=== PATIENT | female | born 1975 | race Caucasian/White ===

== ENCOUNTER 2020-09-28 14:14 | Outpatient (CLI) | payer OTHER, SELFPAY | END 2020-09-28 14:15 | disposition home or self-care (01) | LOC: ANHCOVIDVC 14:14 | PROVIDERS: PCP Family Medicine | DX: Z23 Encounter for immunization (principal) | CPT/HCPCS: 0001A; 91300 ==

== ENCOUNTER 2020-10-19 14:15 | Outpatient (CLI) | payer OTHER, SELFPAY | END 2020-10-19 14:16 | disposition home or self-care (01) | LOC: ANHCOVIDVC 14:15 | PROVIDERS: PCP Family Medicine | DX: Z23 Encounter for immunization (principal) | CPT/HCPCS: 0002A; 91300 ==

== ENCOUNTER → 2022-11-14 11:42 | Outpatient (CLI) | payer OTHER, SELFPAY ==
--- NOTE | ~2022-11-14 | MM_ITS ---
EXAMINATION: MM screening [facility] BI w raul HISTORY: Screening mammogram, family history of breast cancer in her sister. TECHNIQUE: Craniocaudal and mediolateral oblique 3-D tomosynthesis images were obtained and synthetic 2-D images were generated. CAD analysis was submitted and interpreted. COMPARISON: 08/08/2019, 10/26/2015, 03/19/2011 BREAST PARENCHYMAL COMPOSITION: There are scattered areas of fibroglandular density. FINDINGS: No suspicious mass, calcification, or architectural distortion are identified in either helen ast to suggest malignancy. There has been no suspicious interval change. IMPRESSION: 1. No mammographic evidence of malignancy. 2. Recommend routine screening mammography in one year. BI-RADS Category 1: Negative Reviewed, dictated and finalized at location A.
== END ==
PROVIDERS: PCP Nurse Practitioner Family; Visit Provider Nurse Practitioner Family
DX: Z12.31 Encounter for screening mammogram for malignant neoplasm of breast (principal)
CPT/HCPCS: 77063; 77067

== ENCOUNTER → 2022-12-29 15:26 | Outpatient (CLI) | payer OTHER, SELFPAY ==
--- NOTE | ~2022-12-29 | CT_ITS ---
EXAMINATION: CT abdomen pelvis wo con DATE: 12/29/2022 15:48 INDICATION: Epigastric abdominal pain, left upper quadrant abdominal pain, nausea TECHNIQUE: Computed tomography (CT) of the abdomen and pelvis was performed without intravenous contr ast. Automated exposure control and iterative reconstruction technique were employed. Exam dose: 111 0.45 mGy-cm total exam DLP. COMPARISON: None. FINDINGS: Minimal discoid atelectasis or scarring at the base of the lingula, middle lobe and left lo wer lobe. No infiltrate or consolidation at the lung bases. Normal heart size. No pericardial or pleural effusion. Small sliding hiatal hernia. There is hepatic steatosis with minimal pericholecystic sparing. No hepatic, splenic, pancreatic, and adrenal or renal space-occupying mass lesion is evident on this limited noncontrast examination. No bile duct or pancreatic duct dilatation. No urinary tract calculus or hydroureteronephrosis. The urin joanne bladder is unremarkable. Status post hysterectomy. Normal caliber of the abdominal aorta. No intraperitoneal or retroperitoneal or pelvic mass lesion or adenopathy or ascites. Normal appendix. No bowel obstruction, bowel wall thickening, pneumatosis or intraperitoneal free air . Very small fat-containing umbilical hernia. There is severe degenerative disc disease and slight retrolisthesis at L5-S1. No suspicious osteolyti c or osteoblastic lesions are noted. IMPRESSION: Small sliding hiatal hernia Hepatic steatosis Normal appendix Reviewed, dictated and finalized at Location A. Reviewed, dictated and finalized at location B.
== END ==
PROVIDERS: PCP Nurse Practitioner Family; Visit Provider Nurse Practitioner Family
DX: K76.0 Fatty (change of) liver, not elsewhere classified (principal)
CPT/HCPCS: 74176

== ENCOUNTER 2024-06-08 15:11 | Outpatient (CLI) | payer OTHER, SELFPAY ==
--- NOTE | ~2024-06-08 | MM_ITS ---
EXAMINATION: MM screening [facility] w raul HISTORY: Screening mammogram, family history of breast cancer in her sister. TECHNIQUE: Craniocaudal and mediolateral oblique 3-D tomosynthesis images were obtained and synthetic 2-D images were generated. CAD analysis was submitted and interpreted. COMPARISON: 11/14/2022, 08/08/2019 BREAST PARENCHYMAL COMPOSITION:Not Dense. There are scattered areas of fibroglandular density. FINDINGS: No suspicious mass, calcification, or architectural distortion are identified in either helen ast to suggest malignancy. There has been no suspicious interval change. IMPRESSION: No mammographic evidence of malignancy. Recommend routine screening mammography in one year. BI-RADS Category 1: Negative Reviewed, dictated and finalized at location . VERY AIDE
== END 2024-06-08 15:12 | disposition home or self-care (01) ==
PROVIDERS: PCP Nurse Practitioner Family; Visit Provider Nurse Practitioner Family
DX: Z12.31 Encounter for screening mammogram for malignant neoplasm of breast (principal)
CPT/HCPCS: 77063; 77067

== ENCOUNTER 2024-08-30 08:00 | Outpatient (CLI) | payer OTHER, SELFPAY ==
--- NOTE | ~2024-08-30 | DEXA_ITS ---
Bone Density Report Name: JARROD QUIJANO Age: 49 Sex: Female Ethnicity: White Date of : 1975 Indication: postmenopausal; screening for osteoporosis; Referring Provider: SHARRI RAMIREZ Study: Bone densitometry was performed. Exam Date: August 30, 2024 Accession number: [id number] Bone Density: Region BMD T-score Z-score Classification AP Spine(L1-L4) 1.326 2.5 3.4 Normal Femoral Neck (Left) 1.018 1.5 2.4 Normal Total Hip (Left) 1.274 2.7 3.2 Normal Femoral Neck (Right) 1.017 1.5 2.3 Normal Total Hip (Right) 1.274 2.7 3.2 Normal Total Hip Mean 1.274 2.7 3.2 Normal World Health Organization criteria for BMD impression classify patients as: Normal (T-score at or above -1.0), Osteopenia (T-score between -1.0 and -2.5), or Osteoporosis (T-score at or below -2.5). 10-year Fracture Risk: FRAX not reported because: All T-scores for Spine Total, Hip Total, Femoral Neck at or above -1.0 Clinical Information Provided by Patient: Menopause Age: 47 Impression: The patient has normal bone mass. Discussion: LOW RISK OF FRACTURE; BONE DENSITY IS WELL ABOVE THE MINIMUM DESIRABLE LEVEL AND ABOVE AVERAGE FOR AGE AND SEX AT ALL SKELETAL SITES TESTED. This person's bone density is above expected limits for age and sex. This is rarely clinically significant, but should be pursued if there are significant musculoskeletal complaints. The patient should follow a healthful lifestyle (good nutrition with adequate calcium and vitamin D, and appropriate weight-bearing exercise). Follow-Up: Consider repeating this study in 5 years or sooner if there is some new clinical indication. Reported by: BERENICE on 08/30/2024 8:41:00 AM. Reviewed, dictated and finalized at location A. CHELLY
--- OUTSIDE RECORDS SUMMARY | 2024-08-30 08:04 | XMS_ITS | Referral Summary ---
Author Organization [facility] Address [address] [place] [address] Care Team Providers Care Turn Supervisor Name Role Phone Sushila Bland MELISSA-OPHTHALMIC LENS INSPECTOR Primary Care Provider [phone] Source Comments [facility],non-owned Affiliates and Associated Physician Practices is amultiple site organization consisting of ambulatory clinics and hospital sitesin [place], [place], [place] and [place]. This disclosure is being madepursuant to the Care Everywhere program and may not contain all information available regarding this patient. Last updated 18.[facility] Allergies No known active allergies Medications * Be aware that medications may not be up to date on this document. Alwaysverify current medications with the patient. Medication Sig Dispensed Refills Start Date End Date Status Blood Glucose Monitoring Suppl (OneTouch Verio Reflect) w/Device KIT TEST DAILY 12/18/2022 Act carlos Cholecalciferol 1.25 MG (02563 UT) TAKE 1 CAPSULE BY MOUTH EVERY WEEK DIRECTED Active ubiquinine/vitamin-e (Coenzyme Q10) 200 MG capsule Active OneTouch Verio test strip once daily 12/18/2022 Active losartan (Cozaar) 25 MG tablet 08/18/2023 Active Multiple Vitamins-Minerals (Multi Vitamin/Minerals) TABS Take 1 (one) tablet by mouth once daily Active Other KRILL OIL Active Other COLLAGEN POWDER Active Other OSTEO BI FLEX Active Active Problems No known active problems Social History Tobacco Use Types Packs/Day Years Used Date Smoking Tobacco: Former Cigarettes Tobacco Cessation:Counseling Given: Not Answered Alcohol Use Standard Drinks/Week Comments Yes 0 (1 standard drink = 0.6 oz pur e alcohol) OCCASIONALLY Sex and Gender Information Value Date Recorded Sex Assigned at Not on file Gender Identity Not on file Sexual Orientation Not on file Last Filed Vital Signs Vital Sign Reading Time Taken Comments Blood Pressure 122/80 10/05/2023 3:39 PM CDT Pulse - - Temperature - - Respiratory Rate 18 10/05/2023 3:39 PM CDT Oxygen Saturation - - Inhaled Oxygen Concentration - - Weight 109.8 kg (242 lb) 10/05/2023 3:39 PM CDT Height - - Body Mass Index - - Plan of Treatment Not on file Care Teams Turn Supervisor Relationship Specialty Start Date End Date Sushila Bland APRN-GEOVANNY [address] [place] [id number] PCP - General Nurse Practitioner 10/05/23
--- OUTSIDE RECORDS SUMMARY | 2024-08-30 08:04 | XMS_ITS | Encounter Summary ---
Author Organization [facility] Address [address] [place] [address]. [place] [address] [place] [address] Care Team Providers Care Frameman Name Role Phone Sushila Bland Primary Care Provider [phone] Encounter Details Date Type Department Care Team (Late Contact Info) Description 04/15/2024 [employer] Message Enc [facility] [id number] [place] [address] Sushila Bland FNP [address] [place] [address] Request a refill for Pantoprazole, 20mg Social History Tobacco Use Types Packs/Day Years Used Date Smoking Tobacco: Former Cigarettes 0.3 4 Smokeless Tobacco: Never Alcohol Use Standard Drinks/Week Comments Yes 0 (1 standard drink = 0.6 oz pur e alcohol) 1-2 times a month PHQ-2 Answer Date Recorded Patient Health Questionnaire-2 Score 0 08/07/2023 Comments No Sex and Gender Information Value Date Recorded Sex Assigned at Female 08/15/2024 9:06 AM POST EXCHANGE MANAGER Legal Sex Female 8:19 AM POST EXCHANGE MANAGER Gender Identity Female 08/15/2024 9:06 AM POST EXCHANGE MANAGER Sexual Orientation Not on file documented as of this encounter Plan of Treatment Upcoming Encounters Date Type Department Care Team (Late Contact Info) Description 10/31/2024 1:40 PM CDT Office Visit [facility] - [address] [place] [address] Sushila Bland FNP [address] [place] [address] Mainor Araujo PA-C [address] [facility] [place] [address] documented as of this encounter Visit Diagnoses Not on filedocumented in this encounter Additional Health Concerns Assessment Noted Time PHQ-9 Depression Total Score: 1 08/07/19 24 9:43 AM POST EXCHANGE MANAGER documented as of this encounter Care Teams Frameman Relationship Specialty Start Date End Date Sushila Bland FNP [address] [place] [address] PCP - General Nurse Practitioner Family 08/07/22 documented as of this encounter
--- OUTSIDE RECORDS SUMMARY | 2024-08-30 08:04 | XMS_ITS | Data Portability ---
Author Organization [facility] Address [address] [place] [address] Assessment No assessment recorded. Plan of Treatment Reminders Order Date Submit Date Provider Last Modified By Organization Details Last Modified Time Details Appointments None recorded. Lab PPD (purified protein derivative) , skin test 2020 021 LAUREN In-Office Order, Internal Use Only DO Not Attach Compendium DO Not Attach Compendium, Do Not Delete/merge, [id number] 16:39:14 estradiol, serum 2021 022 LAUREN [facility], [address], [address], [place], [address], 08:21:20 lh + FSH, serum 2021 LAUREN [facility], 2022 Kar[address], [address], [place], [address], 08:21:18 vitamin D, 25-hydroxy, total, serum 2021 LAUREN [facility], 2022 [address], [address], [place], [address], 2 08:21:21 HbA1c (hemoglobin A1c), blood 2021 [place] [facility], 20[facility] Kar[address] Wagner, [address], [place], [address], 08:21:19 BMP, serum or plasma 2021 022 LAR[facility], 20[address], [address], [place], [address], 08:21:16 lipid panel, serum 2021 [place] [facility], 2022 Kar[address], [address], [place], [address], 08:21:17 AST/SGOT (aspartate aminotransf erase), serum or plasma 2021 [place] [facility], 20[address], [place], [address], 08:21:22 Referral None recorded. Procedures None recorded. Surgeries None recorded. Imaging None recorded. Medication Orders methylpredn isolone 4 mg tablets in a dose pack 2021 [address] [id number], [address], [place], [place], [id number], 08:38:03 Patient TargetsNo targets recorded. Patient Instructions Encounter Date Encounter Id Patient Instructions Last Modified By Organization Details Last Modified Time 12/09/2021 [id number] learning about menopause Not available 12/09/2021 13:42:54 learning about high blood pressure Not available 12/09/2021 13:42:53 body mass index: care instructions Not available 12/09/2021 13:42:53 learning about healthy weight Not available 12/09/2021 13:42:53 Reason for Referral None Reported. Results Created Date Observation Date Name Description Value Unit Range Abnormal Flag Note LastModifiedBy Organization Detail LastModifiedTime 02/05/2002/05/2021 CBC WITH DIFFE RENTI AL/PL ATELE T WBC 5.7 x10e3 /uL 3.4-10 .8 Not Available [facility] ([facility]) [address], [place], [address], 02/05/2021 06:11:44 02/05/20 21 02/05/2021 CBC WITH DIFFE RENTI AL/PL ATELE T RBC 4.58 x10e6 /uL 3.77-5 .28 Not Available [facility] ([facility]) [address] [place], [address], 02/05/2021 06:11:44 02/05/20 21 02/05/2021 CBC WITH DIFFE RENTI AL/PL ATELE T hemoglobin 14.8 g/dL 11.1-1 5.9 Not Available [facility] ([facility]) [address] [place], [address], 02/05/2021 06:11:44 02/05/2002/05/2021 CBC WITH DIFFE RENTI AL/PL ATELE T hematocrit 43.3 % 34.0-4 6.6 Not Available [facility] ([facility]) [address] [place], [address], 02/05/2021 06:11:44 02/05/2002/05/2021 CBC WITH DIFFE RENTI AL/PL ATELE T MCV 95 fL 79-97 Not Available [facility] ([facility]) [address] [place], [address], 02/05/2021 06:11:44 02/05/2002/05/2021 CBC WITH DIFFE RENTI AL/PL ATELE T MCH 32.3 pg 26.6-3 3.0 Not Available [facility] ([facility]) [address] [place], [address], 02/05/2021 06:11:44 02/05/2002/05/2021 CBC WITH DIFFE RENTI AL/PL ATELE T MCHC 34.2 g/dL 31.5-3 5.7 Not Available [facility] ([facility]) [address] [place], [address], 02/05/2021 06:11:44 02/05/20 21 02/05/2021 CBC WITH DIFFE RENTI AL/PL ATELE T RDW 12.6 % 11.7-1 5.4 Not Available [facility] ([facility]) [address] [facility] [address], [place], [address], 02/05/2021 06:11:44 02/05/20 21 02/05/2021 CBC WITH DIFFE RENTI AL/PL ATELE T platelets 290 x10e3 /uL 150-45 0 Not Available [facility] ([facility]) [address] [facility] [address], [place], [address], 02/05/2021 06:11:44 02/05/20 21 02/05/2021 CBC WITH DIFFE RENTI AL/PL ATELE T neutrophils 60 % not estab. Not Available [facility] ([facility]) [address] [facility] [address], [place], [address], 02/05/2021 06:11:44 02/05/20 21 02/05/2021 CBC WITH DIFFE RENTI AL/PL ATELE T lymphs 32 % not estab. Not Available [facility] ([facility]) [address] [address], [place], [address], 02/05/2021 06:11:44 02/05/20 21 02/05/2021 CBC WITH DIFFE RENTI AL/PL ATELE T monocytes 7 % not estab. Not Available [facility] ([facility]) [address] [facility] [address] [facility], [place], [address], 02/05/2021 06:11:44 02/05/20 21 02/05/2021 CBC WITH DIFFE RENTI AL/PL ATELE T eos 1 % not estab. Not Available [facility] ([facility]) [address] [facility] [address] [facility], [place], [address], 02/05/2021 06:11:44 02/05/20 21 02/05/2021 CBC WITH DIFFE RENTI AL/PL ATELE T basos 0 % not estab. Not Available [facility] ([facility]) [address] [facility] [address] [facility], [place], [address], 02/05/2021 06:11:44 02/05/20 21 02/05/2021 CBC WITH DIFFE RENTI AL/PL ATELE T immature cells PLANT TECH Not Available [facility] ([facility]) [address] [facility] [address] [facility], [place], [address], 02/05/2021 06:11:44 02/05/20 21 02/05/2021 CBC WITH DIFFE RENTI AL/PL ATELE T neutrophils (absolute) 3.4 x10e3 /uL 1.4-7. 0 Not Available [facility] ([facility]) [address] [facility] [address], [place], [address], 02/05/2021 06:11:44 02/05/20 21 02/05/2021 CBC WITH DIFFE RENTI AL/PL ATELE T lymphs (absolute) 1.8 x10e3 /uL 0.7-3. 1 Not Available [facility] ([facility]) [address] [place], [address], 02/05/2021 06:11:44 02/05/20 21 02/05/2021 CBC WITH DIFFE RENTI AL/PL ATELE T monocytes(ab solute) 0.4 x10e3 /uL 0.1-0. 9 Not Available [facility] ([facility]) [address] [place], [address], 02/05/2021 06:11:44 02/05/20 21 02/05/2021 CBC WITH DIFFE RENTI AL/PL ATELE T eos (absolute) 0.1 x10e3 /uL 0.0-0. 4 Not Available [facility] ([facility]) [address] [facility] [address] [facility], [place], [address], 02/05/2021 06:11:44 02/05/20 21 02/05/2021 CBC WITH DIFFE RENTI AL/PL ATELE T baso (absolute) 0.0 x10e3 /uL 0.0-0. 2 Not Available [facility] ([facility]) [address] [facility] [address] [facility], [place], [address], 02/05/2021 06:11:44 02/05/20 21 02/05/2021 CBC WITH DIFFE RENTI AL/PL ATELE T immature granulocytes 0 % not estab. Not Available [facility] ([facility]) [address] [facility] [address] [facility], [place], [address], 02/05/2021 06:11:44 02/05/20 21 02/05/2021 CBC WITH DIFFE RENTI AL/PL ATELE T immature grans (abs) 0.0 x10e3 /uL 0.0-0. 1 Not Available [facility] ([facility]) [address] [facility] [address] [facility], [place], [address], 02/05/2021 06:11:44 02/05/20 21 02/05/2021 CBC WITH DIFFE RENTI AL/PL ATELE T NRBC PLANT TECH Not Available [facility] ([facility]) [address] [facility] [address] [facility], [place], [address], 02/05/2021 06:11:44 02/05/20 21 02/05/2021 CBC WITH DIFFE RENTI AL/PL ATELE T hematology comments: PLANT TECH Not Available [facility] ([facility]) [address] [facility] [address] [facility], [place], [address], 02/05/2021 06:11:44 02/05/20 21 02/05/2021 BASIC METAB OLIC PANEL (8) glucose 104 mg/dL 65-99 above high normal Not Available [facility] ([facility]) [address] [facility] [address] [facility], [place], [address], 02/05/2021 06:11:45 02/05/20 21 02/05/2021 BASIC METAB OLIC PANEL (8) BUN 15 mg/dL 6-24 Not Available [facility] ([facility]) [address] [facility] [address] [facility], [place], [address], 02/05/2021 06:11:45 02/05/2002/05/2021 BASIC METAB OLIC PANEL (8) creatinine 0.92 mg/dL 0.57-1 .00 Not Available [facility] ([facility]) [address] [facility] [address] [facility], [place], [address], 02/05/2021 06:11:45 02/05/20 21 02/05/2021 BASIC METAB OLIC PANEL (8) eGFR if nonafricn AM 74 mL/mi n/1.7 3 >59 Not Available [facility] ([facility]) [address] [facility] [address] [facility], [place], [address], 02/05/2021 06:11:45 02/05/20 21 02/05/2021 BASIC METAB OLIC PANEL (8) eGFR if africn AM 85 mL/mi n/1.7 3 >59 Lab renny curre ntly repor ts eGFR in compl iance with the curre nt recom menda tions of the Natio n[facility] ation . [facility] will updat e repor ting as new guide lines are publi shed from the NKF-A SN Task force . Not Available [facility] ([facility]) [address] [facility] [address], [place], [address], 02/05/2021 06:11:45 02/05/2002/05/2021 BASIC METAB OLIC PANEL (8) BUN/creatini ne ratio 16 9-23 Not Available [facility] ([facility]) [address] [facility] [address] [facility], [place], [address], 02/05/2021 06:11:45 02/05/2002/05/2021 BASIC METAB OLIC PANEL (8) sodium 138 mmol/ L 134-14 4 Not Available [facility] ([facility]) [address] [facility] [place], [address], 02/05/2021 06:11:45 02/05/20 21 02/05/2021 BASIC METAB OLIC PANEL (8) potassium 5.0 mmol/ L 3.5-5. 2 Not Available [facility] ([facility]) [address] [place], [address], 02/05/2021 06:11:45 02/05/20 21 02/05/2021 BASIC METAB OLIC PANEL (8) chloride 103 mmol/ L 96-106 Not Available [facility] ([facility]) [address] [place], [address], 02/05/2021 06:11:45 02/05/20 21 02/05/2021 BASIC METAB OLIC PANEL (8) carbon dioxide, total 23 mmol/ L 20-29 Not Available [facility] ([facility]) [address] [place], [address], 02/05/2021 06:11:45 02/05/20 21 02/05/2021 BASIC METAB OLIC PANEL (8) calcium 9.5 mg/dL 8.7-10 .2 Not Available [facility] ([facility]) [address] [place], [address], 02/05/2021 06:11:45 02/05/20 21 02/05/2021 LIPID PANEL W/ CHOL/ HDL RATIO cholesterol, total 162 mg/dL 100-19 9 Not Available [facility] ([facility]) [address] [place], [address], 02/05/2021 06:11:45 02/05/20 21 02/05/2021 LIPID PANEL W/ CHOL/ HDL RATIO triglyceride s 111 mg/dL 0-149 Not Available [facility] ([facility]) [address] [place], [address], 02/05/2021 06:11:45 02/05/20 21 02/05/2021 LIPID PANEL W/ CHOL/ HDL RATIO HDL cholesterol 45 mg/dL >39 Not Available [facility] ([facility]) [address] [place], [address], 02/05/2021 06:11:45 02/05/20 21 02/05/2021 LIPID PANEL W/ CHOL/ HDL RATIO VLDL cholesterol nimo 20 mg/dL 5-40 Not Available [facility] ([facility]) [address] [place], [address], 02/05/2021 06:11:45 02/05/20 21 02/05/2021 LIPID PANEL W/ CHOL/ HDL RATIO LDL chol calc ([facility]) 97 mg/dL 0-99 Not Available [facility] ([facility]) [address] [place], [address], 02/05/2021 06:11:45 02/05/20 21 02/05/2021 LIPID PANEL W/ CHOL/ HDL RATIO comment: PLANT TECH Not Available [facility] ([facility]) [address] [place], [address], 02/05/2021 06:11:45 02/05/20 21 02/05/2021 LIPID PANEL W/ CHOL/ HDL RATIO T. chol/HDL ratio 3.6 ratio 0.0-4. 4 T. Chol/ HDL Ratio Men Women 1/2 Avg.R isk 3.4 3.3 Avg.R isk 5.0 4.4 2X Avg.R isk 9.6 7.1 3X Avg.R isk 23.4 11.0 Not Available [facility] ([facility]) [address] [place], [address], 02/05/2021 06:11:45 02/05/20 21 02/05/2021 HEMOG LOBIN A1C hemoglobin A1C 5.8 % 4.8-5. 6 above high normal Predi abete s: 5.7 - 6.4 Diabe nhan: >6.4 Glyce mary jane contr ol for adult s with diabe nhan: <7.0 Not Available [facility] ([facility]) [address] [place], [address], 02/05/2021 06:11:46 02/05/20 21 02/05/2021 AST (SGOT ) AST (SGOT) 20 IU/L 0-40 Not Available [facility] ([facility]) [address] [facility], [place], [address], 02/05/2021 06:11:46 03/20/20 21 03/20/2021 PPD (oswaldo fied prote in deriv ative ), skin test Result Negati ve Not Available In-Office Order Internal Use Only DO Not Attach Compendium DO Not Attach Compendium, Do Not Delete/merge, [id number] 03/18/2021 15:04:13 02/08/20 22 02/08/2022 BASIC METAB OLIC PANEL (8) glucose 124 mg/dL 65-99 above high normal Not Available [facility] ([facility]) [address] [facility] [address] [facility], [place], [address], 02/08/2022 08:21:16 02/08/20 22 02/08/2022 BASIC METAB OLIC PANEL (8) BUN 16 mg/dL 6-24 Not Available [facility] ([facility]) [address] [place], [address], 02/08/2022 08:21:16 02/08/20 22 02/08/2022 BASIC METAB OLIC PANEL (8) creatinine 0.96 mg/dL 0.57-1 .00 Not Available [facility] ([facility]) [address] [facility], [place], [address], 02/08/2022 08:21:16 02/08/20 22 02/08/2022 BASIC METAB OLIC PANEL (8) eGFR 73 mL/mi n/1.7 3 >59 Not Available [facility] ([facility]) [address] [place], [address], 02/08/2022 08:21:16 02/08/20 22 02/08/2022 BASIC METAB OLIC PANEL (8) BUN/creatini ne ratio 17 9-23 Not Available [facility] ([facility]) [address] [place], [address], 02/08/2022 08:21:16 02/08/20 22 02/08/2022 BASIC METAB OLIC PANEL (8) sodium 137 mmol/ L 134-14 4 Not Available [facility] ([facility]) [address] [place], [address], 02/08/2022 08:21:16 02/08/20 22 02/08/2022 BASIC METAB OLIC PANEL (8) potassium 4.6 mmol/ L 3.5-5. 2 Not Available [facility] ([facility]) [address] [place], [address], 02/08/2022 08:21:16 02/08/20 22 02/08/2022 BASIC METAB OLIC PANEL (8) chloride 100 mmol/ L 96-106 Not Available [facility] ([facility]) [address] [place], [address], 02/08/2022 08:21:16 02/08/20 22 02/08/2022 BASIC METAB OLIC PANEL (8) carbon dioxide, total 23 mmol/ L 20-29 Not Available [facility] ([facility]) [address] [place], [address], 02/08/2022 08:21:16 02/08/20 22 02/08/2022 BASIC METAB OLIC PANEL (8) calcium 9.7 mg/dL 8.7-10 .2 Not Available [facility] ([facility]) [address] [place], [address], 02/08/2022 08:21:16 02/08/20 22 02/08/2022 LIPID PANEL cholesterol, total 171 mg/dL 100-19 9 Not Available [facility] ([facility]) [address] [place], [address], 02/08/2022 08:21:17 02/08/20 22 02/08/2022 LIPID PANEL triglyceride s 121 mg/dL 0-149 Not Available [facility] ([facility]) [address] [place], [address], 02/08/2022 08:21:17 02/08/20 22 02/08/2022 LIPID PANEL HDL cholesterol 44 mg/dL >39 Not Available [facility] ([facility]) [address] [place], [address], 02/08/2022 08:21:17 02/08/20 22 02/08/2022 LIPID PANEL VLDL cholesterol nimo 22 mg/dL 5-40 Not Available [facility] ([facility]) [address] [place], [address], 02/08/2022 08:21:17 02/08/20 22 02/08/2022 LIPID PANEL LDL chol calc ([facility]) 105 mg/dL 0-99 above high normal Not Available [facility] ([facility]) [address] [place], [address], 02/08/2022 08:21:17 02/08/20 22 02/08/2022 LIPID PANEL comment: PLANT TECH Not Available [facility] ([facility]) [address] [place], [address], 02/08/2022 08:21:17 02/08/20 22 02/08/2022 FSH AND LH LH 34.9 mIU/m L Adult Femal e: Folli cular phase 2.4 - 12.6 Ovula tion phase 14.0 - 95.6 Lutea l phase 1.0 - 11.4 Postm enopa usal 7.7 - 58.5 Not Available [facility] ([facility]) [address] [place], [address], 02/08/2022 08:21:18 02/08/20 22 02/08/2022 FSH AND LH FSH 67.3 mIU/m L Adult Femal e: Folli cular phase 3.5 - 12.5 Ovula tion phase 4.7 - 21.5 Lutea l phase 1.7 - 7.7 Postm enopa usal 25.8 - 134.8 Not Available [facility] ([facility]) [address] [place], [address], 02/08/2022 08:21:18 02/08/20 22 02/08/2022 HEMOG LOBIN A1C hemoglobin A1C 6.4 % 4.8-5. 6 above high normal Predi abete s: 5.7 - 6.4 Diabe nhan: >6.4 Glyce mary jane contr ol for adult s with diabe nhan: <7.0 Not Available [facility] ([facility]) [address] [place], [address], 02/08/2022 08:21:19 02/08/20 22 02/08/2022 ESTRA DIOL estradiol 13.6 pg/mL Adult Femal e: Folli cular phase 12.5 - 166.0 Ovula tion phase 85.8 - 498.0 Lutea l phase 43.8 - 211.0 Postm enopa usal <6.0 - 54.7 Pregn corrine 1st trime ster 215.0 - >4300 .0 Jessica ECLIA metho dolog y Not Available [facility] ([facility]) [address] [place], [address], 02/08/2022 08:21:20 02/08/20 22 02/08/2022 VITAM IN D, 25-HY DROXY vitamin D, 25-hydroxy 26.2 NG/mL 30.0-1 00.0 below low normal Vitam in D defic iency has been defin ed by the Insti tute of Medic ine and an Endoc rine Socie ty pract ice guide line as a level of serum 25-OH vitam in D less than 20 ng/mL (1,2) . The Endoc rine Socie ty went on to furth er defin e vitam in D insuf ficie ncy as a level betwe en 21 and 29 ng/mL (2). 1. IOM (Inst itute of Medic ine). 2009. Dieta ry refer ence inturiel es for calci um and D. Primitivo dasilva [place]: [facility] . 2. Corby k [place], Binkl ey [place], Bisch off-F errar i LOMBARDO, et al. Evalu ation , treat ment, and preve ntion of vitam in D defic iency : an Endoc rine Socie ty clini nimo pract ice guide line. JCEM. 2010; 96(7) :1911 -30. Not Available [facility] ([facility]) [address] [place], [address], 02/08/2022 08:21:21 02/08/20 22 02/08/2022 AST (SGOT ) AST (SGOT) 26 IU/L 0-40 Not Available [facility] ([facility]) [address] [facility], [place], [address], 02/08/2022 08:21:22 Result Notes None recorded. Problems Name Problem SNOMED Code Status Onset Date Resolution Date Notes Provider Name and Address Organization Details Recorded Time Exercise s educatio n, guidance , and counseli ng Active 2017 Billie fisher [place] - [facility] 8 11:32:15 Unintent ional weight gain 44969937835 4104 Active 2017 Billie fisher [place] - [facility] 8 11:32:47 Prediabe nhan 173942547 Active 2017 Billie fisher [place] - [facility] 8 10:48:02 Elevated blood-pr essure reading without diagnosi s of hyperten jared [id number] Completed 201901/06/2020 Billie fisher [place] - [facility] 0 14:01:56 [facility] hyperten jared 16921844 Active 2019 Billie fisher [place] - [facility] 0 17:33:21 SARS-CoV -2 Active 2019 Gerda Silver MD Attn: Accounting ,[address] [facility], [place], [address] , [facility], [place] 0 11:49:53 Cough [id number] Completed 201512/16/2015 Location : None;Sev erity: Moderate ;Progres s: Stable;A dded By: Billie Wray;Add to Current Problems : NO Not Available formerly [facility] 7 11:47:36 Problem Notes None recorded. Procedures Surgical History Date Name Laterality Status Provider Name and Address Organization Details Recorded Time 07/27/19 10 Total hysterectomy completed [facility] 04/19/2018 15:01:00 delivery completed [facility] 04/19/2018 15:00:56 Imaging Results None recorded. Procedure Notes None recorded. Medical Equipment None Reported. Allergies No known drug allergies Medications Name Sig Start Date Stop Date Status Note LastModified by Organization Details LastModified Time lisinopril 20 mg tablet Take 1 tablet every day by oral route. 01/12 completed Not Available Not Available Not Available lisinopril 10 mg tablet TAKE 1 TABLET BY MOUTH EVERY DAY active Not Available Not Available No t Available lisinopril 5 mg tablet TAKE 1 TABLET BY MOUTH EVERY DAY 11/15 completed Not Available Not Available Not Available methylpredn isolone 4 mg tablets in a dose pack FOLLOW PACKAGE DIRECTION S 02/09 completed Not Available Not Available Not Available lisinopril 2.5 mg tablet take 2 tablets PO daily 02/09 completed Not Available Not Available Not Available cholecalcif sayda (vitamin D3) 1,250 mcg (50,000 unit) capsule TAKE 1 CAPSULE BY MOUTH EVERY WEEK DIRECTED active Not Available Not Available No t Available Vitals Date Recorded Body height Body mass index (BMI) Body weight Oxygen saturation Oxygen saturation in Arterial blood by Pulse oximetry Heart rate Body temperature Systolic blood pressure Diastolic blood pressure Provider Name and Address Organization Details Last Updated DateTime 1 167.64 cm 36.9 kg/m2 213272. 21 g 97 % 97 % 72 /min 96.9 [degF] 120 mm[Hg] 80 mm[Hg] Efe Zepeda [place] - [facility] 1 16:38:13 Date Recorded Body height Body mass index (BMI) Body weight Body temperature Oxygen saturation Oxygen saturation in Arterial blood by Pulse oximetry Heart rate Systolic blood pressure Diastolic blood pressure Provider Name and Address Organization Details Last Updated DateTime 2 167.64 cm 37.6 kg/m2 808138. 02 g 97.5 [degF] 96 % 96 % 86 /min 122 mm[Hg] 74 mm[Hg] Sushila Hook MA [facility] 2 13:13:58 Social History Question Answer Notes LastModified by Organizat ion Details LastModified Time Tobacco Smoking Status Former Smoker Sushila Hook MA [facility] 12/09/2021 13:15:26 Do You Have An Advance Directive? Yes Information not available 12/09/2021 What Is Your Level Of Alcohol Consumption? Occasional Information not available 12/09/2021 Are You Blind Or Do You Have Difficulty Seeing? No Information not available 12/09/2021 What Is Your Level Of Caffeine Consumption? Moderate Information not available 12/09/2021 Are You Currently Employed? Yes Information not available 12/09/2021 Are You Deaf Or Do You Have Serious Difficulty Hearing? No Information not available 12/09/2021 What Type Of Diet Are You Following? REGULAR Information not available 12/09/2021 Do You Or Have You Ever Used E-cigarettes Or Vape? Never Used Electronic Cigarettes Information not available 09/03/2020 What Was The Date Of Your Most Recent Tobacco Screening? 12/09/2021 Information not available 12/09/2021 What Is Your Relationship Status? Information not available 12/09/2021 Do You Use Your Seat Belt Or Car Seat Routinely? Yes Information not available 12/09/2021 Do You Or Have You Ever Used Smokeless Tobacco? Never Used Smokeless Tobacco Information not available 09/03/2020 How Much Tobacco Do You Smoke? No Information not available 12/09/2021 Do You Feel Stressed (tense, Restless, Nervous, Or Anxious, Or Unable To Sleep At Night)? [id number] Information not available 12/09/2021 Sex: Female Functional Status Question Answer Note LastModified by Organizat ion Details LastModified Time Are you able to care for yourself? Yes Information not available 12/09/2021 What is your exercise level? Occasional Information not available 12/09/2021 Mental Status None recorded. Family History Relationship Description Onset Age of this Age Resolved Age Notes LastModified by Organization Details LastModified Time Father Hypercholest erolemia [email or web address] Not available 2016 10:25:26 Mother Hypertensive disorder [email or web address] Not available 2016 10:25:58 Mother Diabetes mellitus [email or web address] Not available 2016 10:26:23 Sister Malignant tumor of breast [email or web address] Not available 2016 10:26:13 Medical History Condition Response Coronary Artery Disease N Other N High Blood Pressure N Atrial Fibrillation N Kidney or Bladder Problems N Thyroid Problems N GI Problems N Depression N COPD N Blood Clots N Skin Problems N Anemia N Heart Attack ([place]) N Anxiety Disorder N Diabetes N Muscle, Joint, or Bone Problems N Seizures/Epilepsy N Acid Reflux (GERD) N Cancer N Stroke N Asthma N Allergies N High Cholesterol N Hepatitis N Liver Disease N Headaches N Heart Failure N Osteoporosis N Gynecological History Statement/Question Response Menses Monthly N Obstetrics History GPAL:G 2 P 2 0 0 2 Type Value Full Term 2 Living 2 Total 2 Immunizations Vaccine Type Date Status Note Provider Nam e and Address Organization Details Recorded Time influenza, unspecified formulation 8 completed Tyra Farideh null, [place] - [facility] 05/18/2018 10:51:49 Influenza, split virus, quadrivalent, preservative 9 completed Billie [place] [facility] 07/25/2019 12:50:02 TST-PPD intradermal 1 completed Mandy Chiang LPN [place] [facility] 03/18/2021 15:02:27 COVID-19, mRNA, LNP-S, PF, 30 mcg/0.3 mL dose 1 completed Efe Zepeda [place] [facility] 03/20/2021 16:26:19 COVID-19, mRNA, LNP-S, PF, 30 mcg/0.3 mL dose 1 completed Efe Zep[place] [facility] 03/20/2021 16:27:23 Influenza, split virus, quadrivalent, preservative 1 completed Camila [place] [facility] 05/20/2021 16:29:39 influenza, unspecified formulation 2 completed Camila [place] [facility] 06/10/2022 22:48:23 Tdap 7 completed Not Available formerly [facility] 08/13/2019 02:42:30 Influenza, split virus, quadrivalent, preservative 7 completed Not Available formerly [facility] 08/13/2019 02:50:27 Influenza, split virus, trivalent, PF 4 completed Not Available formerly [facility] 07/30/2016 05:22:33 Influenza, split virus, trivalent, preservative 3 completed Not Available formerly [facility] 07/30/2016 05:22:33 Td(adult) unspecified formulation 0 completed Tyra [place]osh [place] [facility] 03/11/2017 10:43:23 TST-PPD intradermal 7 completed Not Available formerly [facility] 08/27/2019 02:11:46 Past Encounters Encounter ID Performer Location Encounter Start Date Encounter Closed Date Diagnosis/Indication Diagnosis SNOMED-CT Code Diagnosis ICD10 Code Diagnosis Note [id number] Tarsha lzi [facility] [address] [place] [address] 03/11/2017 10:14:04 03/11/2017 13:37:39 Active or passive immunization 395014939 Z23 Tuberculos is screening 063238239 Z11.1 [id number] Billie Wray [facility] [address] [place] [address] 04/23/2017 10:25:09 04/23/2017 14:31:55 Administration of influenza vaccine 50765823 Z23 Adult heal th examination 360971863 Z00.00 [id number] [facility] [address] [place] [address] 05/18/2018 10:29:35 05/19/2018 15:01:15 Adult health examination 591097890 Z00.00 Family his tory of diabetes mellitus 754626795 Z83.3 Family his tory of Thyroid disorder 659312469 Z83.49 Unintentio nal weight gain 3986879537 64571 R63.5 Exercises education, guidance, and counseling 019113001 Z71.82 [id number] [place] [address] [place] [address] 07/25/2019 11:20:08 07/25/2019 14:18:48 Gynecologic examination 92429562 Z01.419 Elevated blood-pressure reading without diagnosis of hypertension 694872752 R03.0 Prediabetes 138408633 R7 3.03 Unintentio nal weight gain 3739943387 81449 R63.5 Screening for malignant neoplasm of breast 352378325 Z12.39 [id number] [place] [id number] [place] [address] 10/28/2019 10:54:38 10/28/2019 15:09:13 Elevated blood-pressure reading without diagnosis of hypertension 168734841 R03.0 exercise and low salt diet [id number] Rose Santiago DRILL OPERATOR [facility] [address] [place] [address] 01/06/2020 09:49:24 01/06/2020 15:15:25 Benign essential hypertension 2740351 I10 Prediabetes 580366924 R7 3.03 [id number] [facility] [address] [place] [address] 02/27/2020 15:05:00 02/28/2020 09:27:51 Essential hypertension 32113913 I10 Intentiona l weight loss 277231317 R63.8 [id number] [facility] [address] [place] [address] 06/04/2020 09:55:25 06/04/2020 14:55:23 SARS-CoV-2 610599927 U07.1 improving -returning to work in 1 week -- Unintentio nal weight loss 754400592 R63.4 8 pounds due to covid [id number] [facility] [address] [place] [address] 09/03/2020 09:16:33 09/03/2020 12:26:26 Essential hypertension 82671399 I10 Prediabetes 447858151 R7 3.03 Perimenopausal state 292 9364126 75416 Z78.0 [id number] Mandy Chiang LPN [facility] [address] [place] [address] 03/18/2021 14:40:41 03/18/2021 16:09:14 Tuberculosis screening 393334949 Z11.1 [id number] [facility] [address] [place] [address] 03/20/2021 15:41:59 03/20/2021 17:41:50 Adult health examination 137190642 Z00.00 form completed [id number] [facility] [address] [place] [address] 12/09/2021 12:06:32 12/09/2021 15:12:52 Essential hypertension 36405166 I10 Body mass index 30+ - obesity 930976962 Z68.37 Pain of le ft elbow joint 1488002085 8445653 M25.522 Prediabetes 718700433 R7 3.03 Perimenopa usal disorder 117588913 N95.9 Health Concerns Section Related Observation LastModified by Organization Detai ls LastModified Time None Recorded Concern Status LastModified by Organization Details LastModified Time None Recorded Advance Directives Directive Y: Payers Encounter Date Sequence Insurance Name Policy Number Policy Holt Covered Member ID Holt Member ID Guarantor Name 06/04/2020 1 [employer] - DOS PRIOR TO 21 - [facility] [employer] (HMO) [id number] Adry Walsh [id number] Adry Walsh 09/03/2020 1 [employer] - DOS PRIOR TO 21 - [facility] [employer] (HMO) [id number] Adry Speedy [place] [id number] Adry Speedy [place] 03/18/2021 1 [employer] - [employer] - OPEN ACCESS [id number] Adry Ruff [place] [id number] OI Adyr Speedy [place] 03/20/2021 1 [employer] - [employer] [place] - [place] - OPEN ACCESS [id number] Adry Ruff Walsh [id number] OI Adry Speedy [place] 12/09/2021 1 [employer] - [facility] [employer] (O) [id number] Adry Ruff [place] [id number] OI Adry Speedy [place] Notes Date Note Type Note Provider Name and Address Organization Details Recorded Time 06/04/2020 text/html COVID-19 Symptom s November 2019Reported bypatient.COVID-19 Signs and Symptomscough improving; fever improving (none since 6 pm 06/03/20); shortness of breath resolved; chills resolved; repeated shaking with chills resolved; muscle pain resolved; headache resolved; sore throat resolved; loss of taste or smell resolved (smell back today); vomiting or diarrhea resolved; fatigue improving Quality:productive cough;dry cough; clear white sputum Severity:mild Duration:symptoms lasting 2 weeks days Onset/Timing:date of symptoms onset: (05/23/20) Associated Symptoms:fatigue; She states she is feeling better than she was on thursday. Prior Labs and ImagingCOVID-19 nasopharyngeal swabNotes:O2 sat - 97% she has notice some hair loss for about 3-4 days after starting lisinopril but it was small now that she has covid hair loss has increased. Should she try different medication. Billie fisher [place] - [facility] 06/04/2020 12:35:32 09/03/2020 text/html Hypertension F/UReported bypatient.Associated Symptoms:no dizziness; no lightheadedness; no chest pain; no shortness of breath; no palpitations; no edema; no calf pain with exertion Lifestyle:regular exercise; exercises 3-4 times/week; exercises for 2-30 minutes/day;high salt intake Medications:taking medications as directed;side effects from medications(dry cough and a little hair lose but states that she is not sure if its coming from the medication); Pt states that she hasnt been taking her blood pressure at home.Notes:BP 117/81 Went over medications with pt pt states that she doesnt need any refills on todays visit. Billie fisher [facility] 09/03/2020 11:51:29 03/20/2021 text/html annual and paper work Billie fisher [facility] 03/20/2021 17:17:25 12/09/2021 text/html Elbow/ForearmRep orte d bypatient.Hand Dominance:right Location:left Quality:aching; deep; frequent; no change; pointed pain,tender spot when grasping or twisting not joint or bone, feels maybe a knot Duration:2 months Timing:acute; abrupt Context:cannot identify Alleviating Factors:rest Aggravating Factors:lifting; carrying; twisting; gripping; grasping; squeezing Associated Symptoms:no weakness; no numbness; no tingling; no swelling; no redness; no warmth; no ecchymosis; no catching/locking; no popping/clicking; no buckling; no grinding; no instability; no radiation down arm; no drainage; no fever; no chills; no weight loss; no change in bowel/bladder habits Previous Surgery:none Prior Imaging:none Previous Injections:none Previous PT:none Work Related:no Working:noHypertensi on F/UReported bypatient.Associated Symptoms:no dizziness; no lightheadedness; no shortness of breath; no palpitations; no calf pain with exertion;chest pain(sometimes chest discomfort but not since meds changed);edema Lifestyle:regular exercise; limiting/avoiding salt Medications:taking medications as directed;side effects from medications(dry cough); checks bp at home sometimes Billie Wray phillip [facility] 12/09/2021 13:50:42 OBGyn Episode No OBEpisode recorded.
--- OUTSIDE RECORDS SUMMARY | 2024-08-30 08:04 | XMS_ITS | Patient Health Summary ---
Author Organization [facility] [employer] Address [address] [place] [address] Care Team Providers Care Testing Shaking Shipping Name Role Phone Sushila Bland MELISSA-SUBCONTRACT MANAGER Primary Care Provider [phone] Note from [facility],non-owned Affiliates and Associated Physician Practices is amultiple site organization consisting of ambulatory clinics and hospital sitesin [place], [place], [place] and [place]. This disclosure is being madepursuant to the Care Everywhere program and may not contain all information available regarding this patient. Last updated 18.[facility] [employer] Allergies No known active allergies Medications * Be aware that medications may not be up to date on this document. Alwaysverify current medications with the patient. * Blood Glucose Monitoring Suppl (OneTouch Verio Reflect) w/Device KIT(Started 12/18/2022) TEST DAILY * Cholecalciferol 1.25 MG (99855 UT) TAKE 1 CAPSULE BY MOUTH EVERY WEEK DIRECTED * ubiquinine/vitamin-e (Coenzyme Q10) 200 MG capsule * OneTouch Verio test strip(Started 12/18/2022) once daily * losartan (Cozaar) 25 MG tablet(Started 08/18/2023) * Multiple Vitamins-Minerals (Multi Vitamin/Minerals) TABS Take 1 (one) tablet by mouth once daily * Other KRILL OIL * Other COLLAGEN POWDER * Other OSTEO BI FLEX Active Problems No known active problems Social [...] - - Body Mass Index - - Care Teams Testing Shaking Shipping Relationship Specialty Start Date End Date Sushila Bland APRN-SUBCONTRACT MANAGER [address] [place] [id number] PCP - General Nurse Practitioner 10/05/23
--- OUTSIDE RECORDS SUMMARY | 2024-08-30 08:04 | XMS_ITS | Clinical Summary ---
Author Organization [facility] [employer] Address [address] [place] [address] Care Team Providers Care Casket Trimmer Name Role Phone Sushila Bland MELISSA-LUMBER BUYER Primary Care Provider [phone] Source Comments [facility] [employer] [facility],non-owned Affiliates and Associated Physician Practices is amultiple site organization consisting of ambulatory clinics and hospital sitesin [place], [place], [place] and [place]. This disclosure is being madepursuant to the Care Everywhere program and may not contain all information available regarding this patient. Last updated 18.[employer] [employer] [facility] Allergies No known active allergies Medications * Be aware that medications may not be up to date on this document. Alwaysverify current medications with the patient. Medication Sig Dispensed Refills Start Date End Date Status Blood Glucose Monitoring Suppl (OneTouch Verio Reflect) w/Device KIT TEST DAILY 12/18/2022 Act carlos Cholecalciferol 1.25 MG (20816 UT) TAKE 1 CAPSULE BY MOUTH EVERY [...] Active Active Problems No known active problems Family History Medical History Relation Name Comments Diabetes - Gestational Father Hypertension Mother Relation Name Status Comments Father Mother Social History Tobacco Use Types Packs/Day Years [...] Mass Index - - Plan of Treatment Health Maintenance Due Date Last Done Comments COLOGUARD (AGES 45-75) - COLON CA SCREENING [address] COLONOGRAPHY - COLON CA SCREENING 1973 FIT - COLON CA SCREENING 1973 FLEX SIG - COLON CA SCREENING 1973 LIPID TESTING 1973 PAP SMEAR 1973 HIV SCREENING 01/26/1988 HEPATITIS C SCREENING 01/21/1991 DTAP/TDAP/TD VACCINES (1 - Tdap) 01/26/1992 HEPATITIS B VACCINE (1 of 3 - 19+ 3-dose series) 01/26/1992 PNEUMOCOCCAL VACCINE 50+ (1 of 1 - PCV) 2023 ZOSTER VACCINE (1 of 2) 2023 COVID-19 VACCINE (4 - 2023- season) 2024 06/03/2021, 10/19/2020, 09/28/2020 INFLUENZA VACCINE (#1) 2024 , 05/15/2022, 04/26/2021, Additional history exists DEPRESSION SCREENING 07/27/2024 MAMMOGRAM 11/14/2024 11/14/2022, 08/08/2019 COLONOSCOPY - COLON CA SCREENING 02/27/2033 02/27/2023 Colorectal Cancer Screening 02/27/2033 HIB VACCINE Aged Out No longer eligi ble based on patient's age to complete this topic HPV VACCINE Aged Out No longer eligi ble based on patient's age to complete this topic MENINGOCOCCAL (Group B) VACCINE Aged Out No longer eligible based on patient's age to complete this topic MENINGOCOCCAL VACCINE Aged Out No juventino sunita eligible based on patient's age to complete this topic PNEUMOCOCCAL VACCINE Aged Out No long er eligible based on patient's age to complete this topic Care Teams Casket Trimmer Relationship Specialty Start Date End Date Sushila Bland, MELISSA-LUMBER BUYER [address] [place] [id number] PCP - General Nurse Practitioner 10/05/23
--- OUTSIDE RECORDS SUMMARY | 2024-08-30 08:04 | XMS_ITS | Clinical Summary ---
Author Organization [facility] Address [address] [place] [address] Care Team Providers Care Case Folder Name Role Phone Unavailable Primary Care Provider Unavailabl e Social History Tobacco Use Types Packs/Day Years Used Date Smoking Tobacco: Never Assessed Comments Unknown Sex and Gender Information Value Date Recorded Sex Assigned at Not on file Legal Sex Female 1:27 PM CDT Gender Identity Not on file Sexual Orientation Not on file Plan of Treatment Health Maintenance Due Date Last Done Comments Hepatitis C Virus (HCV) Screening 1973 Hepatitis B Immunization (1 of 3 - 19+ 3-dose series) 01/26/1992 Pap Smear 1994 Cervical Cancer Screening (CCS) 2003 HPV/Cotest 2003 Colonoscopy 2018 Colorectal Cancer Screening 2018 Cologuard 2023 Immunochemical Fecal Occult Blood 2023 Mammogram 2023 Pneumococcal Immunization (50+ years) (1 of 1 - PCV) 2023 Zoster Immunization (1 of 2) 2023 Influenza Immunization (#1) 03/27/20242 , 04/27/2018, 04/23/2017, Additional history exists SARS-COV-2 Immunization ( season) 2024 06/03/2021, 10/19/2020, 09/28/2020 Respiratory Syncytial Virus (RSV) Immunization (Adult) (1 - 1-dose 75+ series) 01/26/2048 DTaP/Tdap/Td Immunization Discontinued 03/11/2017, 07/1999 TdaP Immunization Completed 03/11/2017 Meningococcal Immunization (ACWY) Aged Out No longer eligible based on patient's age to complete this topic Pneumococcal Immunization Combined Aged Out No longer eligible based on patient's age to complete this topic Rotavirus Immunization Aged Out No lo nger eligible based on patient's age to complete this topic Insurance [employer] on file
--- OUTSIDE RECORDS SUMMARY | 2024-08-30 08:05 | XMS_ITS | Clinical Summary ---
Author Organization [facility] Address [address] [place] [address]. [place] [address] [place] [address] Care Team Providers Care Trouble Operator Name Role Phone Sushila Bland PERNELL Primary Care Provider [phone] Allergies No known active allergies Medications multi vitamin/minerals (THERA-M ENHANCED) tablet Take 1 tablet by mouth daily. Active Cholecalciferol (VITAMIN D) 125 MCG (5000 UT) Cap 3 Active Biotin 2500 MCG Chew Tab 3 Active Coenzyme Q10 (COQ10) 200 MG Cap Active Glucose Blood test stripIndications :Prediabetes 1 strip by Other route as needed. Use as instructed 100 strip 3 Active Lancets MiscIndications: Prediabetes Use to check blood glucose daily 100 each 3 3 Active Blood Glucose Monitor Software DeviceIndication s:Prediabetes Glucose monitor to check blood sugars daily (any that her insurance will cover) 1 each 3 Active Boswellia-Glucos amine-Vit D (OSTEO BI-FLEX ONE PER DAY OR) Acti ve progesterone (PROMETRIUM) 100 MG capsuleIndicatio ns:Insomnia associated with menopause Take 1 capsule (100 mg total) by mouth nightly at bedtime. 30 capsule 2 4 Active estradiol (CLIMARA) 0.1 MG/24HR APPLY 1 PATCH WEEKLY 5 Active IMVEXXY MAINTENANCE PACK 10 MCG INSERT INSERT 1 PEN INTO THE VAGINA 2 TIMES A WEEK 5 Active pantoprazole EC (PROTONIX) 20 MG tabletIndication s:Gastroesophage al reflux disease, unspecified whether esophagitis present Take 1 tablet (20 mg total) by mouth daily. 90 tablet 3 5 Active losartan (COZAAR) 25 MG tabletIndication s:Primary hypertension Take 1 tablet (25 mg total) by mouth daily. 90 tablet 3 5 Active pantoprazole EC (PROTONIX) 20 MG tabletIndication s:Gastroesophage al reflux disease, unspecified whether esophagitis present Take 1 tablet (20 mg total) by mouth daily. 30 tablet 1 4 025 Discontin ued(Reord er) losartan (COZAAR) 25 MG tabletIndication s:Primary hypertension Take 1 tablet (25 mg total) by mouth daily. 90 tablet 4 025 Discontin ued(Reord er) Active Problems Problem Noted Date Diagnosed Date Hiatal hernia with GERD 08/15/2024 Gastroesophageal reflux dise ase, unspecified whether esophagitis present 08/15/2024 Hormone replacement therapy (HRT) 08/15/2024 Positive TELMA (antinuclear antibody) 01/01/2024 Menopausal symptoms 01/01/2024 Insulin resistance 01/01/2024 Screening for colon cancer 11/04/2022 Overview (11/04/2022): Added automatically from request for surgery [id number] Class 2 severe obesity due t o excess calories with serious comorbidity and body mass index (BMI) of 37.0 to 37.9 in adult ([facility]) 08/08/2022 Vitamin D deficiency 08/08/2022 Essential hypertension 02/27/2020 Prediabetes 05/19/2018 Encounters Date Type Department Care Team Description 08/19/2024 Telephone [facility] Family & Internal Medicine [address] [address] Sushila Bland FNP Lab Results 08/15/2024 9:00 AM DERRICK FOLLOWER Office Visit [facility] Family & Internal Medicine [address] [address] Sushila Bland FNP Physical 08/15/2024 - 08/15/2024 11:59 PM DERRICK FOLLOWER Hospital Encounter [facility] [address] [place] [address] Sushila Bland FNP Discharge Disposition: Home or Self Care (Routine Discharge) 08/15/2024 Travel 07/07/2024 Orders Only [facility] Family & Internal [address] [address] Sushila Bland FNP 07/06/2024 MyChart Message Enc [facility] Internal [address] [address] Sushila Bland FNP Tested positive for Covid 07/0506/17/2024 Telephone [facility] Internal [address] [address] Sushila Bland FNP Results 06/08/2024 Scan [employer] INFO SRVCS Scanned, Doc [facility] Mammogram (SCAN) from Last 3 Months Immunizations Name Administration Dates Next Due Fluzone (IIV3, Trivalent, 0. 5 ML Prefilled Syringe) 08/15/2024 H1N1 Injectable 2008 Influenza 08/22/2009 Influenza (Generic) 05/15/2022,04/27/2018,2012 Influenza Adult (Generic) 05/20/2023,07/2020,07/15/2019,2016,05/20/2014 Greats COVID-19 (ORIGINAL FORMULATION, PURPLE CAP) mRNA, LNP-S, PF, 30 MCG/0.3 ML DOSE 06/03/2021,10/19/2020,10/19/2020,2020,09/28/2020 Td, Adsorbed, Preservative F ree, Adult Use, Lf Unspecified 07/27/1999 Tdap (Generic) 03/11/2017 Family History Medical History Relation Comments Colonic polyp Father Diabetes Father Hyperlipidemia Father Cancer Maternal Aunt Diabetes Maternal Grandfather Diabetes Maternal Grandmother Heart Disease Maternal Uncle Colonic polyp Mother Hyperlipidemia Mother Hypertension Mother Colon Cancer Other Diabetes Paternal Grandfather Diabetes Paternal Grandmother Stroke Paternal Grandmother Cancer Sister Relation Status Comments Father Alive Maternal Aunt Maternal Grandfather Maternal Grandmother Maternal Uncle Mother Alive Other paternal great u ncle Paternal Grandfather Paternal Grandmother Sister Alive breast cancer at 29 Social History Tobacco Use Types Packs/Day Years Used Date Smoking Tobacco: Former Cigarettes 0.3 4 Smokeless Tobacco: Never Alcohol Use Standard Drinks/Week Comments Yes 0 (1 standard drink = 0.6 oz pur e alcohol) 1-2 times a month PHQ-2 Answer Date Recorded Patient Health Questionnaire-2 Score 0 08/15/2024 Comments No Sex and Gender Information Value Date Recorded Sex Assigned at Female 08/15/2024 9:06 AM DERRICK FOLLOWER Legal Sex Female 8:19 AM DERRICK FOLLOWER Gender Identity Female 08/15/2024 9:06 AM DERRICK FOLLOWER Sexual Orientation Not on file Last Filed Vital Signs Vital Sign Reading Time Taken Comments Blood Pressure 124/80 08/15/2024 9:06 AM DERRICK FOLLOWER Pulse 78 08/15/2024 9:06 AM DERRICK FOLLOWER Temperature 36.4 ??C (97.5 ??F) 08/15/2024 9:06 AM CS T Respiratory Rate 14 08/15/2024 9:06 AM DERRICK FOLLOWER Oxygen Saturation 97% 08/15/2024 9:06 AM DERRICK FOLLOWER Inhaled Oxygen Concentration - - Weight 103 kg (227 lb 1.6 oz) 08/15/2024 9:06 AM DERRICK FOLLOWER Height 165.1 cm (5' 5 ) 08/15/2024 9:06 AM DERRICK FOLLOWER Body Mass Index 37.79 08/15/2024 9:06 AM DERRICK FOLLOWER Plan of Treatment Upcoming Encounters Date Type Department Care Team (Late st Contact Info) Description 10/31/2024 1:40 PM CDT Office Visit [facility] Multispecialty Care - [facility] [address] [facility] [place] [address] Sushila Bland, PERNELL [address] [place] [address] Mainor Araujo PA-C [address] [facility] [address] [place] [address] Health Maintenance Due Date Last Done Comments Annual Physical 01/26/1976 Hepatitis B Vaccines (1 of 3 - 19+ 3-dose series) 01/26/1992 COVID-19 Vaccine (2023- season) 2025 05/01/2023, 06/28/2022, 06/03/2021, Additional history exists Postponed from 03/27/2024 (Patient Refused) Zoster Vaccines (1 of 2) 08/15/2025 Pos tponed from 2023 (Patient Refused) Mammogram Screening 06/08/2026 06/08/2024, 11/14/2022, 08/08/2019 DTaP, Tdap and Td Vaccines (2 - Td or Tdap) 03/11/2027 03/11/2017, 07/27/1999 Colorectal Cancer Screening Colonoscopy (10 Years) 02/27/2033 02/27/2023 Hepatitis C Completed 08/07/2023 Influenza Adult Completed 08/15/2024, 04/27, 05/15/2022, Additional history exists PHQ-2 (Physician [place]) Completed 08/15/2024 Meningococcal B Vaccine Aged Out No l onger eligible based on patient's age to complete this topic Meningococcal Vaccine Aged Out No juventino sunita eligible based on patient's age to complete this topic Pneumococcal Vaccine: Pediatrics (0 to 5 Years) and At-Risk Patients (6 to 64 Years) Aged Out No longer eligible based on patient's age to complete this topic RSV Immunizations Under 20 Months Aged Out No longer eligible based on patient's age to complete this topic Procedures Procedure Name Priority Date/Time Associated Diagnosis Comments ANTINUCLEAR ANTIBODIES PATTERN Routine 08/15/2024 10:27 AM DERRICK FOLLOWER SSB ANTIBODY Routine 08/15/2024 10:27 AM DERRICK FOLLOWER HERNANDEZ (SM) ANTIBODY Routine 08/15/2024 1 0:27 AM DERRICK FOLLOWER SCL 70 Routine 08/15/2024 10:27 AM DERRICK FOLLOWER RACHEL-1 ANTIBODY Routine 08/15/2024 10:27 AM DERRICK FOLLOWER CENTROMERE B AB (QST) Routine 08/15/2024 10:27 AM DERRICK FOLLOWER DECATING MACHINE OPERATOR ANTIBODY Routine 08/15/2024 10:27 AM DERRICK FOLLOWER TELMA IFA SCRN, [place] REFLEX TO TITER Routine 08/15/2024 10:27 AM DERRICK FOLLOWER CYCLIC CITRULLINATED PEPTIDE (CCP)ANTIBODY(IGG) Routine 08/15/2024 10:27 AM DERRICK FOLLOWER Positive TELMA (antinuclear antibody) CBC W/DIFF AUTOMATED Routine 08/15/2024 10:27 AM DERRICK FOLLOWER Class 2 severe obesity due to excess calories with serious comorbidity and body mass index (BMI) of 37.0 to 37.9 in adult ([facility]) Primary hypertension LIPID PANEL Routine 08/15/2024 10:27 AM DERRICK FOLLOWER Class 2 severe obesity due to excess calories with serious comorbidity and body mass index (BMI) of 37.0 to 37.9 in adult ([facility]/HCC) Primary hypertension TSH W/REFLEX Routine 08/15/2024 10:27 AM DERRICK FOLLOWER Class 2 severe obesity due to excess calories with serious comorbidity and body mass index (BMI) of 37.0 to 37.9 in adult ([facility]) Primary hypertension VITAMIN D, 25 OH Routine 08/15/2024 10:2 7 AM DERRICK FOLLOWER Vitamin D deficiency URIC ACID BLOOD Routine 08/15/2024 10:27 AM DERRICK FOLLOWER Class 2 severe obesity due to excess calories with serious comorbidity and body mass index (BMI) of 37.0 to 37.9 in adult ([facility]) Primary hypertension COMPREHENSIVE METABOLIC PANEL Routine 08/15/2024 10:27 AM DERRICK FOLLOWER Class 2 severe obesity due to excess calories with serious comorbidity and body mass index (BMI) of 37.0 to 37.9 in adult ([facility]) Primary hypertension URINALYSIS, AUTO, COMPLETE Routine 08/15/2024 10:27 AM DERRICK FOLLOWER Class 2 severe obesity due to excess calories with serious comorbidity and body mass index (BMI) of 37.0 to 37.9 in adult ([facility]) Primary hypertension ANTINUCLEAR ANTIBODY WI RFX Routine 08/15/2024 10:27 AM DERRICK FOLLOWER Positive TELMA (antinuclear antibody) SSA ANTIBODY Routine 08/15/2024 10:27 AM DERRICK FOLLOWER Positive TELMA (antinuclear antibody) VITAMIN B-12 Routine 08/15/2024 10:27 AM DERRICK FOLLOWER Prediabetes FOLIC ACID SERUM Routine 08/15/2024 10:2 7 AM DERRICK FOLLOWER Prediabetes MAGNESIUM Routine 08/15/2024 10:27 AM DERRICK FOLLOWER Prediabetes Primary hypertension INSULIN,TOTAL Routine 08/15/2024 10:27 AM DERRICK FOLLOWER Insulin resistance COLLECTION VENOUS BLOOD VENIPUNCTURE Routine 08/15/2024 9:48 AM DERRICK FOLLOWER Prediabetes Insulin resistance Class 2 severe obesity due to excess calories with serious comorbidity and body mass index (BMI) of 37.0 to 37.9 in adult ([facility]CC) Vitamin D deficiency Positive TELMA (antinuclear antibody) Primary hypertension COLLECT.CAPILLARY (FNGR,HEEL,EAR) Routine 08/15/2024 9:01 AM DERRICK FOLLOWER Prediabetes HEMOGLOBIN, GLYCOSYLATED Routine 08/15/2024 Prediabetes MAMMOGRAM GENERIC (SCAN ORDER) 06/08/2024 HEPATITIS C ANTIBODY Routine 08/07/2023 10:50 AM DERRICK FOLLOWER Encounter for hepatitis C screening test for low risk patient from Last 3 Months or Most Recently Relevant to Health Maintenance Results * (ABNORMAL) ANTINUCLEAR ANTIBODIES PATTERN (08/15/2024 10:27 AM DERRICK FOLLOWER) TELMA TITER 1:160(A) Negative 08/22/2024 5:31 AM DERRICK FOLLOWER [employer] [place] Comment: Reference Range: <1:40 ?Negative 1:40-1:80 ??Low Antibody Level >1:80 ?Elevated Antibody Level Test Performed by [employer], [address] [place] [address] Jaime Vaughn M.D., Ph.D., Director of Laboratories , [facility] [id number] TELMA PATTERN REPORT 08/22/2024 5:31 AM DERRICK FOLLOWER [place] [employer] [place] Comment: Nuclear, Homogeneous Homogeneous pattern is associated with systemic lupus erythematosus (SLE), drug-induced lupus and juvenile idiopathic arthritis. AC-1: Homogeneous International Consensus on TELMA Patterns https://doi.org/10.1515/czqh-1234-3209 TELMA TITER THREE END OF REPORT 08/22/2024 5:31 AM DERRICK FOLLOWER [employer] [place] 08/15/2024 10:2 7 AM DERRICK FOLLOWER Sushila Bland [facility] Final Result [address] [address], * (ABNORMAL) TELMA IFA [facility] REFLEX TO TITER (08/15/2024 10:27 AM DERRICK FOLLOWER) TELMA POSITIVE( A) Negative 08/22/2024 5:03 AM DERRICK FOLLOWER [place] [employer] [place] Comment: TELMA IFA is a first line screen for detecting the presence of up to approximately 150 autoantibodies in various autoimmune diseases. A positive TELMA IFA result is suggestive of autoimmune disease and reflexes to titer and pattern. Further laboratory testing may be considered if clinically indicated. For additional information, please refer to http://education.Student Film Channel/faq/PUR729 (This link is being provided for informational/ educational purposes only.) Test Performed by [employer], [address] [place] [address] Jaime W Roderick, M.D., Ph.D., Director of Laboratories , [facility] [id number] 08/15/2024 10:2 7 AM DERRICK FOLLOWER Sushila Bland [facility] Final Result Performing Organization Address [facility]/ZIP Co de Phone Number [employer] [facility] [address] [place] [address], * DECATING MACHINE OPERATOR ANTIBODY (08/15/2024 10:27 AM DERRICK FOLLOWER) DECATING MACHINE OPERATOR (U1) AB S/P/B 1.9 0.0 - 4.9 U/mL 08/17/2024 1:[address] [facility] Comment: NEGATIVE: <5 U/mL EQUIVOCAL: 5 to 10 U/mL POSITIVE: >10 U/mL ?AUTOANTIBODIES TO DECATING MACHINE OPERATOR ARE FOUND IN GREATER THAN 95% OF PATIENTS WITH MIXED CONNECTIVE TISSUE DISEASE (MCTD), BUT ARE ALSO SEEN IN SYSTEMIC LUPUS ERYTHEMATOUS (40%), RHEUMATOID ARTHRITIS (10%), SCLERODERMA SYNDROME (10%), AND RARELY IN DRUG INDUCED LUPUS AND SJOGREN'S SYNDROME. ABSENCE OF DECATING MACHINE OPERATOR ANTIBODIES USUALLY RULES OUT MCTD. 08/15/2024 10:2 7 AM DERRICK FOLLOWER Sushila [facility] LAB[facility]AT[facility] Final Result Performing Organization Address [facility] de Phone Number [facility] [address] [place] [phone], [phone] * HERNANDEZ (SM) ANTIBODY (08/15/2024 10:27 AM DERRICK FOLLOWER) SM ANTIBODY <0.7 0.0 - 6.9 U/mL 08/17/2024 1:[address] [facility] Comment: NEGATIVE: <7 U/mL EQUIVOCAL: 7 to 10 u/mL POSITIVE: >10 U/mL Autoantibodies to Hernandez (Sm) antigen are found in 30% of patients with systemic lupus erythematosus and are highly specific for this disease. 08/15/2024 10:2 7 AM DERRICK FOLLOWER us Sushila Bland [facility] LABORATORY Final Result Performing Organization Address [facility] Co de Phone Number [facility] [address] [place] [address], [place] [phone] * SSB ANTIBODY (08/15/2024 10:27 AM DERRICK FOLLOWER) SSB ANTIBODY 0.7 0.0 - 6.9 U/mL 08/17/2024 1:[address] [facility] Comment: NEGATIVE: <7 U/mL EQUIVOCAL: 7 to 10 u/mL POSITIVE: >10 U/mL ?? SSA AND/OR SSB AUTOANTIBODIES ARE DETECTED IN 60% TO 90% OF PATIENTS WITH SJOGREN'S SYNDROME AND IN 20% TO 40% OF PATIENTS WITH SYSTEMIC LUPUS ERYTHEMATOSUS. 08/15/2024 10:2 7 AM DERRICK FOLLOWER Sushila Bland [facility] LAB[facility] Final Result Performing Organization Address [facility] de Phone Number [facility] [address] [place] [address], [place] [phone] * SSA ANTIBODY (08/15/2024 10:27 AM DERRICK FOLLOWER) SSA ANTIBODY 6.6 0.0 - 6.9 U/mL 08/17/2024 11:[address] [facility] Comment: NEGATIVE: <7 U/mL EQUIVOCAL: 7 to 10 u/mL POSITIVE: >10 U/mL ?? SSA AND/OR SSB AUTOANTIBODIES ARE DETECTED IN 60% TO 90% OF PATIENTS WITH SJOGREN'S SYNDROME AND IN 20% TO 40% OF PATIENTS WITH SYSTEMIC LUPUS ERYTHEMATOSUS. 08/15/2024 10:2 7 AM DERRICK FOLLOWER us Sushila Bland [facility] LAB[facility] Final Result Performing Organization Address [facility] Co de Phone Number [facility] [address] [place] [address], [place] [phone] * TSH W/REFLEX (08/15/2024 10:27 AM DERRICK FOLLOWER) TSH 1.088 0.358 - 3.740 uIU/ML 08/15/2024 4:52 PM DERRICK FOLLOWER [facility] 08/15/2024 10:2 7 AM DERRICK FOLLOWER [facility] Final Result Performing Organization Address City/[facility]/ZIP Co de Phone Number [facility] [address] [place] [address], [place] [phone] * ANTINUCLEAR ANTIBODY WI RFX (TELMA) (08/15/2024 10:27 AM DERRICK FOLLOWER) Pathologist [facility] TELMA 1.5 08/17/2024 11:[address] [facility] Comment: POSITIVE: >1.0 RATIO SEE SEPARATE PROFILE RESULTS AND IFA TITER THE TELMA SCREEN TESTS FOR THE FOLLOWING ANTIBODIES BY EIA: SSA1 (RO), SSB1 (LA), HERNANDEZ, SCL70, JO1, CENTROMERE, DECATING MACHINE OPERATOR HISTONE MUST BE ORDERED SEPARATELY DNA (DS) ANTIBODY 3.2 IU/ML 025 11:[address] [facility] Comment: NEGATIVE: <10 IU/mL EQUIVOCAL: 10 to 15 IU/mL POSITIVE: >15 IU/mL THIS QUANTITATIVE ASSAY IS CALIBRATED TO THE [employer]'S WO/80 STANDARD. THE LEVEL OF dsDNA AUTOANTIBODY GERERALLY CORRELATES WITH THE LEVEL OF DISEASE ACTIVITY IN SYSTEMIC LUPUS ERYTHMATOSUS 08/15/2024 10:2 7 AM DERRICK FOLLOWER Sushila Childersjuan josé [facility] Final Result Performing Organization Address City/[facility]/ZIP Co de Phone Number [facility] [address] [place] [address], [place] [phone] * CENTROMERE B AB (QST) (08/15/2024 10:27 AM DERRICK FOLLOWER) CENTROMERE B AB S/P/B <0.4 0.0 - 6.9 U/mL 08/17/2024 1:[address] [facility] Comment: NEGATIVE: <7 U/mL EQUIVOCAL: 7 to 10 u/mL POSITIVE: >10 U/mL ?? AUTOANTIBODY TO CENTROMERE B IS SEEN IN 70% TO 85% OF PATIENTS WITH CREST (CALCINOSIS, RYNAUD'S PHENOMENON, ESOPHAGEAL HYPOMOTILITY, SCLERODACTYLY AND TELANGIECTASEA) SYNDROME VARIANT OF SYSTEMIC SCLEROSIS AND IN 10% TO 15% OF PATIENTS WITH PRIMARY BILIARY CIRRHOSIS. 08/15/2024 10:2 7 AM DERRICK FOLLOWER Sushila Bland [facility] Final Result Performing Organization Address City/[facility] Co de Phone Number [facility] [address] [place] [address], [phone] * CYCLIC CITRULLINATED PEPTIDE (CCP)ANTIBODY(IGG) (08/15/2024 10:27 AM DERRICK FOLLOWER) CITRULLINE PEPTIDE ANTIBODY 19 UNITS [employer] [facility] Comment: Reference Range Negative: ?<20 Weak Positive: ? 20-39 Moderate Positive: ?? 40-59 Strong Positive: ? >59 08/15/2024 10:2 7 AM DERRICK FOLLOWER 08/16/2024 3:36 AM DERRICK FOLLOWER Narrative Resulting Agency Comment Performing Organization Information: ?Site ID: [place] ?Name: [employer] ?Address: [address] [address] ?Director: Josemanuel Painting MD Sushila [facility] LABORAT[facility] Final Result Performing Organization Address City/[facility]/ZIP Co de Phone Number [employer] [facility] [employer] [facility] [address] [phone], * SCL 70 (08/15/2024 10:27 AM DERRICK FOLLOWER) SCL 70 S/P/B 1.6 0.0 - 6.9 U/mL 08/17/2024 1:[address] [facility] Comment: NEGATIVE: <7 U/mL EQUIVOCAL: 7 to 10 u/mL POSITIVE: >10 U/mL AUTOANTIBODIES TO Scl-70 ARE FOUND IN UP TO 60% OF PATIENTS WITH SCLERODERMA (SYSTEMIC SCLEROSIS) AND ARE CONSIDERED TO BE SPECIFIC FOR THIS DISEASE. 08/15/2024 10:2 7 AM DERRICK FOLLOWER Sushila Childersjuan josé [facility] Final Result Performing Organization Address [facility] Co de Phone Number [facility] [address] [place] [address], [phone] * RACHEL-1 ANTIBODY (08/15/2024 10:27 AM DERRICK FOLLOWER) RACHEL-1 ANTIBODY 0.5 0.0 - 6.9 U/mL 08/17/2024 1:[address] [facility] Comment: NEGATIVE: <7 U/mL EQUIVOCAL: 7 to 10 u/mL POSITIVE: >10 U/mL ?? AUTOANTIBODIES TO Jo1 ARE FOUND IN 10% TO 50% OF PATIENTS WITH DERMATOMYOSITIS OR POLYMYOSITIS AND IN 20% OF PATIENTS WITH SCLERODERMA SYNDROME. Jo1 AUTOANTIBODIES ARE GENERALLY NOT SEEN OUTSIDE OF THESE DISEASE STATES. 08/15/2024 10:2 7 AM DERRICK FOLLOWER Sushila [facility] Final Result Performing Organization Address [facility] Co de Phone Number [facility] [address] [place] [address], [phone] * (ABNORMAL) URINALYSIS (08/15/2024 10:27 AM DERRICK FOLLOWER) COLOR (U) YELLOW 08/15/2024 2:26 PM DERRICK FOLLOWER [facility] TRANSPARENCY CLEAR CLEAR 08/15/2024 2:26 PM DERRICK FOLLOWER [facility] SPECIFIC GRAVITY (U) 1.020 1.003 - 1.040 08/15/2024 2:26 PM DERRICK FOLLOWER [facility] U PH 5.5 5.0 - 9.0 08/15/2024 2:26 PM DERRICK FOLLOWER [facility] PROTEIN RANDOM (U) NEGATIVE NEGATIVE 08/15/2024 2:26 PM DERRICK FOLLOWER [facility] GLUCOSE (U) NEGATIVE NEGATIVE 08/15/2024 2:26 PM DERRICK FOLLOWER [facility] KETONES MG/DL (U) NEGATIVE NEGATIVE 08/15/2024 2:26 PM DERRICK FOLLOWER [facility] BILIRUBIN (U) NEGATIVE NEGATIVE 08/15/2024 2:26 PM DERRICK FOLLOWER [facility] BLOOD (U) NEGATIVE NEGATIVE 08/15/2024 2:26 PM [facility] UROBILINOGEN 0.2 0.0 - 2.0 EU/DL 08/15/2024 2:26 PM DERRICK FOLLOWER [facility] NITRITES NEGATIVE NEGATIVE 08/15/2024 2:26 PM DERRICK FOLLOWER [facility] LEUKOCYTES (U) NEGATIVE NEGATIVE 08/15/2024 2:26 PM DERRICK FOLLOWER [facility] RBC/HPF 0-3 0 - 3 /HPF 08/15/2024 2:26 PM DERRICK FOLLOWER [facility] WBC/HPF 0-3 0 - 3 /HPF 08/15/2024 2:26 PM DERRICK FOLLOWER [facility] EPI/HPF 0-3 /HPF 08/15/2024 2:26 PM DERRICK FOLLOWER [facility] BACTERIA (U) 1+(A) NONE SEEN 08/15/2024 2:26 PM DERRICK FOLLOWER [facility] URINE SPECIMEN OBTAINED BY CLEAN CATCH PROCEDURE / Unknown 08/15/2024 10:27 AM DERRICK FOLLOWER Sushila Bland [employer]ODUCTION SANIT[employer]ER URINE ORDERABLES Final Result Performing Organization Address [facility]/ZIP Co de Phone Number [facility] [address] [place] [address], [place] [phone] * VITAMIN B-12 (08/15/2024 10:27 AM DERRICK FOLLOWER) VITAMIN B12 S/P/B [phone] - 986 PG/ML 08/15/2024 4:52 PM DERRICK FOLLOWER [facility] 08/15/2024 10:2 7 AM DERRICK FOLLOWER Sushila Baldo [facility] Final Result Performing Organization Address [facility] de Phone Number [facility] [address] [place] [address], [place] [phone] * (ABNORMAL) COMPREHENSIVE METABOLIC PANEL (08/15/2024 10:27 AM DERRICK FOLLOWER) SODIUM S/P/B 136 136 - 145 MMOL/L 08/15/2024 4:52 PM DERRICK FOLLOWER [facility] POTASSIUM S/P/B 4.3 3.5 - 5.1 MMOL/L 08/15/2024 4:52 PM DERRICK FOLLOWER [facility] CHLORIDE S/P/B 101 98 - 107 MMOL/L 08/15/2024 4:52 PM DERRICK FOLLOWER [facility] CO2 30.0 21 - 32 MMOL/L 08/15/2024 4:52 PM DERRICK FOLLOWER [facility] GLUCOSE 111(H) 70 - 99 MG/DL 08/15/2024 4:52 PM DERRICK FOLLOWER [facility] BUN 12 7 - 18 MG/DL 08/15/2024 4:52 PM DERRICK FOLLOWER [facility] CREATININE S/P/B 0.86 0.55 - 1.02 MG/DL 08/15/2024 4:52 PM DERRICK FOLLOWER [facility] CALCIUM S/P/B 9.2 8.4 - 10.5 MG/DL 08/15/2024 4:52 PM [facility] BILIRUBIN TOTAL S/P/B 0.6 0.2 - 1.0 MG/DL 08/15/2024 4:52 PM [facility] ALKALINE PHOSPHATASE S/P/B 59 41 - 108 U/L 08/15/2024 4:52 PM [facility] AST 22 15 - 37 U/L 08/15/2024 4:52 PM [facility] ALT 41 14 - 59 U/L 08/15/2024 4:52 PM [facility] TOTAL PROTEIN S/P/B 7.2 6.4 - 8.2 G/DL 08/15/2024 4:52 PM [facility] ALBUMIN S/P/B 4.2 3.4 - 5.0 G/DL 08/15/2024 4:52 PM [facility] ANION GAP 5.0 5 - 15 MMOL/L 08/15/2024 4:52 PM [facility] Comment:REFERENCE RANGE NOT ESTABLISHED OSMOLALITY (CALC) 282 MOSM/KG 025 4:52 PM [facility] Comment:REFERENCE RANGE NOT ESTABLISHED GFR ESTIMATE 82(L) >90 ML/MIN/1. 73 M2 08/15/2024 4:52 PM [facility] GFR NOTES GFR REFERENCE S: 08/15/2024 4:52 PM [facility] Comment: THE ESTIMATED GFR IS CALCULATED USING THE 2020 CKD-EPI EQUATION. THE FOLLOWING CATEGORIES FOR GRADING RENAL FUNCTION ARE RECOMMENDED BY THE INTERNATIONAL SOCIETY OF NEPHROLOGY (KDIGO 2012 CLINICAL PRACTICE GUIDELINE). G1,NORMAL OR HIGH: >89 ml/min/1.73 m2 G2,MILDLY DECREASED: 60-89 ml/min/1.73 m2 G3A,MILDLY TO MODERATELY DECREASED: 45-59 ml/min/1.73 m2 G3B,MODERATELY TO SEVERELY DECREASED: 30-44 ml/min/1.73 m2 G4,SEVERELY DECREASED: 15-29 ml/min/1.73 m2 G5,KIDNEY FAILURE: <15 ml/min/1.73 m2 08/15/2024 10:2 7 AM DERRICK FOLLOWER Sushila Bland [facility] Final Result [facility] [address] [place] [address], [place] [phone] * (ABNORMAL) LIPID PANEL (08/15/2024 10:27 AM DERRICK FOLLOWER) CHOLESTEROL 184 <200 MG/DL 08/15/2024 4:52 PM DERRICK FOLLOWER [facility] TRIGLYCERIDES 155(H) <150 MG/DL 08/15/2024 4:52 PM [facility]ERRICK FOLLOWER [facility] HDL 54 >40 MG/DL 08/15/2024 4:52 PM [facility]ERRICK FOLLOWER [facility] LDL-C 99 <100 MG/DL 08/15/2024 4:52 PM DERRICK FOLLOWER [facility] VLDL CALCULATION 31(H) 5 - 28 MG/DL 08/15/2024 4:52 PM DERRICK FOLLOWER [facility] CHOL/HDL RATIO 3.4 0.0 - 4.0 08/15/2024 4:52 PM [facility]ERR[facility] FOLLOWER [facility] LDL/HDL 1.8 0.41 - 2.13 08/15/2024 4:52 PM DERRICK FOLLOWER [facility] NON HDL CHOLESTEROL 130 <140 MG/DL 08/15/2024 4:52 PM [facility]ERRICK FOLLOWER [facility] 08/15/2024 10:2 7 AM DERRICK FOLLOWER Sushila Childersjuan [facility]os[facility] Final Result [facility] [address] [place] [address], [place] [phone] * FOLIC ACID SERUM (08/15/2024 10:27 AM DERRICK FOLLOWER) FOLATE 9.8 8.6 - 58.9 NG/ML 08/16/2024 1:52 PM DERRICK FOLLOWER [facility] 08/15/2024 10:2 7 AM DERRICK FOLLOWER Sushila Bland [facility] Final Result [facility] [address] [place] [address], * (ABNORMAL) CBC W/DIFF AUTOMATED (08/15/2024 10:27 AM DERRICK FOLLOWER) WBC 5.17 4.00 - 10.80 x10'3/uL 08/15/2024 4:30 PM DERRICK FOLLOWER [facility] RBC 4.84 4.10 - 5.40 x10'6/uL 08/15/2024 4:30 PM DERRICK FOLLOWER [facility] HGB 15.1 12.0 - 16.0 G/DL 08/15/2024 4:30 PM [facility] HCT 45.2 36.0 - 47.0 % 08/15/2024 4:30 PM DERRICK FOLLOWER [facility] MCV 93.4 78.0 - 100.0 FL 08/15/2024 4:30 PM [facility] MCH 31.2(H) 27.0 - 31.0 PG 08/15/2024 4:30 PM DERRICK FOLLOWER [facility] MCHC 33.4 33.0 - 36.0 G/DL 08/15/2024 4:30 PM [facility] RDW 11.9 11.5 - 14.5 % 08/15/2024 4:30 PM DERRICK FOLLOWER [facility] PLT 267 150 - 350 x10'3/uL 08/15/2024 4:30 PM [facility] MPV 8.9 7.4 - 10.4 FL 08/15/2024 4:30 PM [facility] DIFFERENTIAL TYPE AUTOMATED DIFFERENTIAL 08/15/2024 4:30 PM [facility] NEUTROPHILS % 57.2 % 08/15/2024 4:30 PM [facility] LYMPHOCYTES % 36.9 % 08/15/2024 4:30 PM [facility] MONOCYTES % 4.3 % 08/15/2024 4:30 PM [facility] EOSINOPHILS % 1.2 % 08/15/2024 4:30 PM [facility] BASOPHILS % 0.4 % 08/15/2024 4:30 PM [facility] IMMATURE GRANS % 0.0 % 08/15/2024 4:30 PM [facility] ABS. NEUTROPHILS 2.96 1.60 - 8.30 x10'3/uL 08/15/2024 4:30 PM [facility] ABS. LYMPHOCYTES 1.91 0.80 - 4.70 x10'3/uL 08/15/2024 4:30 PM [facility] ABS. MONOCYTES 0.22 0.00 - 1.50 x10'3/uL 08/15/2024 4:30 PM [facility] ABS. EOSINOPHILS 0.06 0.00 - 0.40 x10'3/uL 08/15/2024 4:30 PM [facility] ABS. BASOPHILS 0.02 0.00 - 0.20 x10'3/uL 08/15/2024 4:30 PM [facility] ABS. IMMATURE GRANULOCYTES 0.00 0.00 - 0.03 x10'3/uL 08/15/2024 4:30 PM [facility] 08/15/2024 10:2 7 AM DERRICK FOLLOWER Sushila Bland [facility] Final Result Performing Organization Address [facility] de Phone Number [facility] [address] [place] [address], * VITAMIN D, 25 OH (08/15/2024 10:27 AM DERRICK FOLLOWER) [facility] VITAMIN D 25 HYDROXY TOTAL S/P/B 61.3 30 - 100 NG/ML 08/15/2024 4:52 PM DERRICK FOLLOWER [facility] Comment: ? DEFICIENT ??<20 ?INSUFFICIENT 20-30 ?SUFFICIENT 30-100 08/15/2024 10:2 7 AM DERRICK FOLLOWER Sushila Bland [facility] Final Result Performing Organization Address [facility] de Phone Number [address] [place] [address], * INSULIN,TOTAL (08/15/2024 10:27 AM DERRICK FOLLOWER) [facility] INSULIN 31.4 2.6 - 37.6 uIU/ML 08/18/2024 5:[address] [facility] Comment: ASSAY PERFORMED BY CHEMILUMINESCENCE METHODOLOGY USING SIEM[employer] CENTAUR XPT REAGENT. PATIENT RESULTS DETERMINED BY ASSAYS USING DIFFERENT MANUFACTURERS FOR METHODS MAY NOT BE COMPARABLE. 08/15/2024 10:2 7 AM DERRICK FOLLOWER Sushila Bland [facility] Final Result Performing Organization Address City/[facility] de Phone Number [facility] [address] [place] [address], [phone] * MAGNESIUM (08/15/2024 10:27 AM DERRICK FOLLOWER) [facility] MAGNESIUM 2.0 1.8 - 2.4 MG/DL 08/15/2024 4:52 PM DERRICK FOLLOWER [facility] 08/15/2024 10:2 7 AM DERRICK FOLLOWER Sushila Bland [facility] Final Result Performing Organization Address [facility]/ZIP Co de Phone Number [facility] [address] [place] [address], [place] [phone] * (ABNORMAL) URIC ACID BLOOD (08/15/2024 10:27 AM DERRICK FOLLOWER) URIC ACID 7.0(H) 2.6 - 6.0 MG/DL 08/15/2024 3:12 PM DERRICK FOLLOWER [facility] 08/15/2024 10:2 7 AM [facility]ERRICK FOLLOWER [facility] Final Result Performing Organization Address [facility] Co de Phone Number [facility] [address] [place] [address], * HEMOGLOBIN, GLYCOSYLATED (08/15/2024) HGB A1C 6.1 % [facility] 08/15/2024 [facility] Final Result Performing Organization Address [facility] Co de Phone Number [facility] [address] [place] [address], [place] * MAMMOGRAM GENERIC (SCAN ORDER) (06/08/2024) Anatomical Region Laterality Modality Other 06/08/2024 [facility] Scanned SCANNING Final Resu lt * HEPATITIS C ANTIBODY ([facility] ONLY) (08/07/2023 10:50 AM DERRICK FOLLOWER) HEPATITIS C AB NON-REACTI VE NON-REACT LISS 08/07/2023 7:[address] [facility] Comment: ANTIBODIES TO HCV NOT DETECTED. DOES NOT EXCLUDE THE POSSIBILITY OF EXPOSURE TO HCV. 08/07/2023 10:5 0 AM DERRICK FOLLOWER Sushila GIMENEZ [facility] Final Result [facility] [address] [place] [address], [place] [phone] [id number] from Last 3 Months or Most Recently Relevant to Health Maintenance Insurance [employer] OPEN ACCESS [facility] Care Teams Trouble Operator Relationship Specialty Start Date End Date Sushila Bland FNP [address] [place] [address] PCP - General Nurse Practitioner Family 08/07/22
--- OUTSIDE RECORDS SUMMARY | 2024-08-30 08:05 | XMS_ITS | Encounter Summary ---
Author Organization [facility] Address [address] [place] [address]. [place] [address] [place] [address] Care Team Providers Care Lcpc Name Role Phone Sushila Bland Primary Care Provider [phone] Encounter Details Date Type Department Care Team (Late Contact Info) Description 07/06/2024 MyChart Message Enc [facility] Family & Internal Medicine [id number] [place] [address] Sushila Bland FNP [address] [place] [address] Tested positive for Covid 07/05 Social History Tobacco Use Types Packs/Day Years [...] Sex Assigned at Female 08/15/2024 9:06 AM CLINICAL LABORATORY AIDE Legal Sex Female 8:19 AM CLINICAL LABORATORY AIDE Gender Identity Female 08/15/2024 9:06 AM CLINICAL LABORATORY AIDE Sexual Orientation Not on file documented as of this encounter Plan of Treatment Upcoming Encounters Date Type Department Care Team (Late Contact Info) Description 10/31/2024 1:40 PM CDT Office Visit [facility] Multispecialty Care - [address], [address] [place] [address] Sushila Bland FNP [address] [place] [address] Mainor Araujo PA-C [address] [facility] [address] [place] [address] documented as of this encounter Visit Diagnoses Not on filedocumented in this encounter Additional Health Concerns Assessment Noted Time PHQ-9 Depression Total Score: 1 08/07/19 24 9:43 AM CLINICAL LABORATORY AIDE documented as of this encounter Care Teams Lcpc Relationship Specialty Start Date End Date Sushila Bland FNP [facility] [place] [address] PCP - General Nurse Practitioner Family 08/07/22 documented as of this encounter
== END 2024-08-30 08:01 | disposition home or self-care (01) ==
LOC: ANHIMG 08:01
PROVIDERS: PCP Nurse Practitioner Family; Visit Provider Obstetrics & Gynecology Gynecology
DX: Z78.0 Asymptomatic menopausal state (principal)
CPT/HCPCS: 77080

== ENCOUNTER 2025-06-13 10:37 | Outpatient (CLI) | payer OTHER, SELFPAY ==
--- NOTE | ~2025-06-13 | MM_ITS ---
EXAMINATION: MM screening susana BI w raul HISTORY: Screening TECHNIQUE: Craniocaudal and mediolateral oblique 3-D tomosynthesis images were obtained and synthetic 2-D images were generated. CAD analysis was submitted and interpreted. COMPARISON: Comparison to multiple prior studies sequentially, with oldest reviewed study dated 10/26/2015. BREAST PARENCHYMAL COMPOSITION: Not dense: There are scattered areas of fibroglandular density. FINDINGS: There is no evidence of suspicious mass, calcification, or architectural distortion to suggest malignancy in either breast. There has been no suspicious interval change. IMPRESSION: 1. No mammographic evidence of malignancy. 2. Recommend routine screening mammography in one year. BI-RADS Category 1: Negative Reviewed, dictated and finalized at location O. H PIECER
== END 2025-06-13 10:38 | disposition home or self-care (01) ==
LOC: MICIMG 10:37
PROVIDERS: PCP Obstetrics & Gynecology Gynecology; Visit Provider Nurse Practitioner Family
DX: Z12.31 Encounter for screening mammogram for malignant neoplasm of breast (principal)
CPT/HCPCS: 77063; 77067